=== PATIENT | female | born 1955 | race Caucasian/White ===

== ENCOUNTER 2021-10-30 15:05 | Outpatient (CLI) | payer OTHER, SELFPAY ==
[2021-10-30 18:46] LABS: Hemoglobin A1C 10.6 % (<5.7)
[2021-10-30 19:16] LABS: Free T4 Free Thyroxine 1.11 ng/mL (0.78-2.19)
[2021-10-30 19:21] LABS: Total Triiodothyronine (T3) 1.12 NG/ML (0.97-1.69)
[2021-11-02 06:02] LABS: Triiodothyronine T3 Free 2.7 pg/mL (2.3-4.2)
== END 2021-10-30 15:06 | disposition home or self-care (01) ==
LOC: ANHGOSHLAB 15:07
PROVIDERS: PCP Family Medicine; Visit Provider Family Medicine
DX: R73.9 Hyperglycemia, unspecified (principal); E03.9 Hypothyroidism, unspecified
CPT/HCPCS: 36415; 83036; 84439; 84443; 84480; 84481

== ENCOUNTER 2022-01-24 09:40 | Outpatient (CLI) | payer OTHER, SELFPAY ==
[2022-01-24 19:29] LABS: Free T4 Free Thyroxine 1.46 ng/mL (0.78-2.19)
== END 2022-01-24 09:41 | disposition home or self-care (01) ==
LOC: ANHGOSHLAB 09:41
PROVIDERS: PCP Family Medicine; Visit Provider Family Medicine
DX: E03.9 Hypothyroidism, unspecified (principal)
CPT/HCPCS: 36415; 84439; 84443

== ENCOUNTER 2024-11-06 12:24 | Emergency (ER) | payer MEDICARE, SELFPAY ==
--- NOTE | ~2024-11-06 | XR_ITS ---
EXAMINATION: XR shoulder RT min 2V, 11/06/2024 13:25 CDT HISTORY: fall, shoulder pain COMPARISON: No comparisons available. Findings: No acute fracture or malalignment. Moderate degenerative changes with calcific tendinopathy Soft tissues unremarkable. Impression: No acute fracture or malalignment. Reviewed, dictated and finalized at location A. Impression: No acute fracture or malalignment.
--- NOTE | ~2024-11-06 | XR_ITS ---
EXAMINATION: XR elbow RT 2V, 11/06/2024 13:25 CDT HISTORY: fall, r upper arm pain COMPARISON: No comparisons available. Findings: No acute fracture or malalignment. No significant degenerative changes. Soft tissues unremarkable. Impression: No acute fracture or malalignment. Reviewed, dictated and finalized at location A. Impression: No acute fracture or malalignment.
[2024-11-06 12:25] VITALS: BP 142/78; PULSE 80; RESP 16; TEMP 36.7; O2SAT 100
--- NOTE | 2024-11-06 12:44 | ED.FALL ---
HPI - Fall General Chief Complaint: Fall Stated Complaint: fall Time Seen by Provider: 11/06/24 12:38 Source: patient, family and EMS Mode of arrival: EMS Limitations: no limitations History of Present Illness HPI Narrative: Patient tripped and fell at home, ground level fall landed on the right shoulder, denies other injuries. Related Data Home Medications ?Medication ?Instructions ?Recorded ?Confirmed ?Last Taken ?Type cetirizine 10 mg tablet (Zyrtec) 10 mg PO DAILY PRN 10/30/21 01/24/22 Unknown History cholecalciferol (vitamin D3) 125 125 mcg PO DAILY 10/30/21 01/24/22 Unknown History mcg (5,000 unit) capsule glucosamine-chondroitin 250 mg-200 2 tablet PO DAILY 10/30/21 01/24/22 Unknown History mg tablet (Osteo Bi-Flex) Allergies Allergy/AdvReac Type Severity Reaction Status Date / Time Penicillins Allergy Intermediate Anaphylactic Verified 01/29/22 09:42 Shock egg Allergy Unknown Verified 01/29/22 09:42 erythromycin base Allergy Unknown Verified 01/29/22 09:42 milk Allergy Unknown Verified 01/29/22 09:42 tetracycline Allergy Unknown Verified 01/29/22 09:42 penicillin V AdvReac Intermediate Anaphylactic Verified 01/29/22 09:42 Shock Tetracyclines AdvReac Intermediate Hives Verified 01/29/22 09:42 venom-wasp AdvReac Intermediate Anaphylactic Verified 01/29/22 09:42 Shock latex AdvReac Mild Wheezing Verified 01/29/22 09:42 Review of Systems Review of Systems: All systems reviewed & are unremarkable except as noted in HPI and below PMFSH Past Medical History Medical History Diverticulitis Osteoarthritis Thyroid disorder Asthma Allergies Family History Family History Father Alcoholism Aneurysm Mother Thyroid disorder Son Asthma Daughter Asthma Thyroid disorder Grandparent Asthma Cancer Diabetes mellitus Thyroid disorder Aneurysm Father Family history of transient ischemic attacks Patient's father is Family history of rheumatic fever Mother Patient's mother is Social History Social History Smoking status: Never smoker Alcohol intake: never Substance use: never Lack of Transportation: YES Lack of Food: Sometimes True Current Housing: I Have Housing Concerned About Future Housing: Decline to Answer Difficulty Paying Gas/Electric Bills: Decline to Answer Difficulty Paying for Meds: Decline to Answer Currently Unemployed: No Education: Associate Degree Difficulty w/ Childcare or Family Care: No Exam Narrative: General appearance: Well-developed, well-nourished Skin: Normal color Head: Normocephalic, nontraumatic Eyes: Clear conjunctiva ENT: Oropharynx normal, ears normal, nose normal Neck: Supple, nontender Chest and respiratory: Airway patent, no respiratory distress, no accessory muscle use Heart: Regular rate/rhythm Abdomen: Soft, nontender, no organomegaly, quiet bowel sounds Vascular: Normal peripheral pulses, normal capillary refill. Musculoskeletal: Severe tenderness right shoulder, severe limited range of motion, positive deformity Neurologic: Alert and oriented ?3, [employer] is normal as tested, no gross motor deficit Course Vital Signs Vital signs: Vital Signs Temperature 36.7 C 11/06/24 12:25 Pulse Rate 80 11/06/24 12:25 Respiratory Rate 16 11/06/24 12:25 Blood Pressure 142/78 H 11/06/24 12:25 Pulse Oximetry 100 11/06/24 12:25 Oxygen Delivery Room Air 11/06/24 12:25 Temperature 36.7 C 11/06/24 12:25 Pulse Rate 80 11/06/24 12:25 Respiratory Rate 16 11/06/24 12:25 Blood Pressure 142/78 H 11/06/24 12:25 Pulse Oximetry 100 11/06/24 12:25 Oxygen Delivery Room Air 11/06/24 12:25 MDM - Fall MDM Narrative Medical decision making narrative: Patient had a fall, right shoulder pain Differential diagnosis include fracture, dislocation or contusion X-ray of right shoulder and right elbow showed no acute osseous abnormality. Discharged home on Tylenol and ibuprofen as needed Differential Diagnosis Differential diagnosis: Likely dislocation of shoulder region and other (Right shoulder fracture) Imaging Data Radiologist's impression: Impressions Elbow X-Ray 11/06/24 14:06 Impression: No acute fracture or malalignment. Shoulder X-Ray 11/06/24 14:06 Impression: No acute fracture or malalignment. Discharge Plan Discharge Clinical Impression: Contusion of right shoulder Patient Disposition: Home Condition: Stable Instructions: Shoulder Pain (ED) Additional Instructions: Return if symptoms are worsening , call your family physician for appointment, take Tylenol, ibuprofen as as needed for aches and pain, continue home medications. Patient Language: Green[place]ic Prescriptions: No Action cetirizine [Zyrtec] 10 mg tablet 10 mg PO DAILY PRN cholecalciferol (vitamin D3) 125 mcg (5,000 unit) capsule 125 mcg PO DAILY glucosamine-chondroitin [Osteo Bi-Flex] 250-200 mg tablet 2 tablet PO DAILY Rx Instructions: give after food/meal budesonide-formoterol [Symbicort] 80-4.5 mcg/actuation HFA aerosol inhaler 2 puff inhalation Q12H Qty: 10.2 0RF epinephrine 0.3 mg/0.3 mL auto-injector 0.3 mg IM ONCE Qty: 2 0RF Rx Instructions: as a single dose; may repeat once Follow-up/Referrals: Lindsay Vega DO [Physician, Family Practice]
[2024-11-06] MEDS: KETOROLAC (*BKC) 60 MG/2 ML VIAL IM (14:27)
[2024-11-06 15:10] VITALS: BP 135/89; PULSE 84; RESP 16; O2SAT 98
== END 2024-11-06 15:15 | disposition home or self-care (01) ==
PROVIDERS: Emergency Provider Emergency Medicine
DX: S40.011A Contusion of right shoulder, initial encounter (principal); M19.90 Unspecified osteoarthritis, unspecified site; J45.909 Unspecified asthma, uncomplicated; W01.0XXA Fall on same level from slipping, tripping and stumbling without subsequent striking against object, initial encounter
CPT/HCPCS: 73030; 73070; 96372; 99284; A4565; J1885